=== PATIENT | female | born 1995 | race Caucasian/White ===

== ENCOUNTER → 2017-01-11 | Outpatient (REF) | payer MEDICAID | LOC: LAB 15:38 | PROVIDERS: ATTEND Obstetrics & Gynecology | DX: Z33.1 Pregnant state, incidental (principal) | CPT/HCPCS: 87653 ==

== ENCOUNTER 2017-01-29 16:06 | Outpatient (CLI) | payer MEDICAID ==
[~2017-01-29] VITALS: Ht 165.1 cm; Wt 127.7 kg
[2017-01-29 16:08] VITALS: BP 135/84
[2017-01-29 16:37] VITALS: BP 138/80
== END 2017-01-29 16:40 | disposition home or self-care (01) ==
LOC: EUOP 16:06 → OB 16:08 → EUOP 16:40
PROVIDERS: ATTEND Family Medicine
DX: O36.8131 Decreased fetal movements, third trimester, fetus 1 (principal); O99.820 Streptococcus B carrier state complicating pregnancy; Z34.83 Encounter for supervision of other normal pregnancy, third trimester; Z3A.38 38 weeks gestation of pregnancy
CPT/HCPCS: 59025

== ENCOUNTER 2017-02-05 09:24 | Inpatient (IN) | payer MEDICAID ==
[~2017-02-05] VITALS: Ht 165.1 cm; Wt 127.7 kg
[2017-02-05] VITALS (27 sets, daily range): BP systolic 118–157; BP diastolic 56–85
[2017-02-05] MEDS ORDERED: OXYTOCIN INJ 20 UNIT in NS 1000ml 1,000 ML IV PRN (12:22)
[2017-02-05] MEDS ORDERED: CALCIUM CARBONATE CHEWABLE 300 MG (TUMS) TABLET PO PRN (12:25)
[2017-02-05] MEDS ORDERED: AMPICILLIN INJ 2,000 MG in SODIUM CHLORIDE 100 ML IV SCH (12:25)
[2017-02-05 13:27] LABS: MEAN CORPUSCULAR HEMOGLOBIN 25.7 PG (26.0-34.0); MEAN CORPUSCULAR HGB CONC 31.9 g/dL (31.0-37.0); MEAN PLATELET VOLUME 10.5 FL (6.0-9.5); WHITE BLOOD COUNT 14.24 10^3uL (4.0-11.0)
[2017-02-05] MEDS ORDERED: ROPIVACAINE 1% 10 MG/ML (NAROPIN) 20 ML AMPUL ONE ×2 (14:43→20:48)
[2017-02-05 16:28] LABS: BILIRUBIN,URINE Negative (Negative); CLARITY,URINE Clear; COLOR,URINE Yellow; GLUCOSE, URINE (UA) Negative (Negative); LEUKOCYTE ESTERASE ,URINE Negative (Negative); UROBILINOGEN,URINE 0.2 mg/dL (0.2-1.0)
[2017-02-05 17:06] LABS: RBC,URINE 0-2 /HPF; URINE CENTRIFUGED VOLUME 12 mL
[2017-02-05] MEDS: AMPICILLIN INJ 1,000 MG in SODIUM CHLORIDE 50 ML IV SCH ×2 (17:40→22:00)
[2017-02-05] MEDS ORDERED: OXYTOCIN INJ 20 UNIT in NS 1000ml 1,000 ML SCH (20:15)
[2017-02-05] MEDS ORDERED: OXYTOCIN INJ 20 UNIT in NS 1000ml 1,000 ML IV SCH (21:07)
[2017-02-06] VITALS (8 sets, daily range): BP systolic 126–176; BP diastolic 65–96
[2017-02-06] MEDS ORDERED: MAG HYDROX/AL HYDROX/SIMETH 200-200-20/5 ML (MAG-AL PLUS) 30 ML UDC PO PRN (00:40)
[2017-02-06] MEDS ORDERED: LANOLIN OINTMENT 28 GM TUBE TOP PRN (00:40)
[2017-02-06] MEDS ORDERED: HYDROcodone/APAP 7.5 MG/325 MG (NORCO) TABLET PO PRN (00:40)
[2017-02-06] MEDS ORDERED: M-M-R II (MEASLES,MUMPS,RUBELLA) VACCINE SC SCH (00:40)
[2017-02-06] MEDS: IBUPROFEN 600 MG (MOTRIN) TAB PO PRN ×3 (04:12→21:42)
[2017-02-06] MEDS: DOCUSATE SODIUM 100 MG (COLACE) CAP PO SCH (21:42)
[2017-02-07 07:12] LABS: MEAN PLATELET VOLUME 10.2 FL (6.0-9.5); WHITE BLOOD COUNT 13.89 10^3uL (4.0-11.0)
[2017-02-07 07:15] LABS: MEAN CORPUSCULAR HEMOGLOBIN 25.5 PG (26.0-34.0); MEAN CORPUSCULAR HGB CONC 31.3 g/dL (31.0-37.0)
[2017-02-07 08:30] VITALS: BP 142/81
[2017-02-07] MEDS: FERROUS SULFATE 325 MG (IRON) TABLET PO SCH ×2 (12:22→18:13)
[2017-02-07 21:45] VITALS: BP 138/82
[2017-02-07] MEDS: DOCUSATE SODIUM 100 MG (COLACE) CAP PO SCH (21:45)
[2017-02-08] MEDS: IBUPROFEN 600 MG (MOTRIN) TAB PO PRN (05:16)
[2017-02-08 08:45] VITALS: BP 138/81
[2017-02-08] MEDS: FERROUS SULFATE 325 MG (IRON) TABLET PO SCH (09:51)
== END 2017-02-08 10:37 | disposition home or self-care (01) | DRG 775 ==
LOC: OB 09:24 → EUOP 09:24 → OB 12:57 → EUOP 12:57 → OB 02-06 00:20
PROVIDERS: ADMIT Obstetrics & Gynecology; ATTEND Obstetrics & Gynecology
PROC: 10E0XZZ Delivery of Products of Conception, External Approach (ICD-10-PCS; principal; 2017-02-06)
PROC: 0HQ9XZZ Repair Perineum Skin, External Approach (ICD-10-PCS; 2017-02-06)
DX: O99.824 Streptococcus B carrier state complicating childbirth (principal); Z68.42 Body mass index [BMI] 45.0-49.9, adult; O99.214 Obesity complicating childbirth; E66.9 Obesity, unspecified; O70.0 First degree perineal laceration during delivery; O69.82X0 Labor and delivery complicated by other cord entanglement, without compression, not applicable or unspecified; O34.219 Maternal care for unspecified type scar from previous cesarean delivery; Z78.9 Other specified health status; Z3A.39 39 weeks gestation of pregnancy; Z37.0 Single live birth
CPT/HCPCS: 36415; 81003; 81015; 85027; 86850; 86900; 86901; 90707; 99202

== ENCOUNTER 2017-03-17 17:37 | Emergency (ER) | payer MEDICAID ==
[~2017-03-17] VITALS: Ht 165.1 cm; Wt 113.2 kg
[~2017-03-17 17:37] MED LIST: AC325T PO; BIRTH CONTROL PILL; CALC500T7 PO; CLIN-78 PO; FERR325T5 PO; HYDR-3702 PO; IBUP-793 PO; NO HOME MEDICATIONS; OXYC1TAB87 PO; PNV1CAPS13 PO; PREN1TAB76 PO; SULF-228 PO
--- OUTSIDE RECORDS SUMMARY | 2017-03-17 17:42 | XMS REPORT | Continuity of Care Document ---
Author Author [facility] Address Unknown Phone Unavailable Care Team Providers Care Tests Superintendent Name Role Phone CHRISTY CARRILLO MD PCP [phone] Insurance Providers Payer Name Policy Number Subscriber Name Relationship [facility] [id number] Kasie White 17 Self / Same As Patient Advance Directives Directive Response Recorded Date/Time Advanced Directives Not applicable 04/18/15 6:50pm Chief Complaint and Reason for Visit Chief Complaint LABOR AND DELIVERY Reason for Visit Abscess Normal labor Removal of nikita Spider bite wound Problems Active Problems Medical Problem Onset Date Status 38 weeks gestation of Unknown Acute 39 weeks gestation of Unknown Acute Abdominal pain Unknown Acute Abscess 04/27/2013 Acute Decreased movement Unknown Acute GBS (group B Streptococcus carrier), +RV culture, currently Unknown Acute Infection of skin 04/23/2013 Acute Insect bite - wound 08/26/2012 Acute Laceration Unknown Acute Normal labor 02/10/2013 Acute Previous section 02/11/2013 Acute Removal of nikita 02/15/2013 Acute Spider bite wound 08/25/2012 Acute Medications Current Home Medications Medication Dose Units Route Directions Days/Qty Instructions Start Date Acetaminophen (Tylenol) 325 Mg 325 Mg ORAL As Needed as needed for Back Pain 01/29/17 Calcium Carbonate 200 Mg 200 Mg ORAL Every Three Hours as needed for Acid Reflux 02/05/17 Acetaminophen/Hydrocodone Bitart 1 Each 1-2 Tab ORAL Every 6 Hours as needed for Pain 30 02/07/17 Ferrous Sulfate 325 Mg 325 Mg ORAL Daily 30 02/07/17 Past Home Medications Medication Directions Ordered Status Clindamycin Hcl 150 Mg Capsule, 300 Mg Oral Twice A Day 08/25/12 Discontinued Vits W-Ca,Fe,Fa(<1MG) 1 Each Tablet, 1 Each Oral 02/02/13 Discontinued Pnv Comb.no58/Iron Bisgly/Fa 1 Each Capsule, 1 Each Oral 02/10/13 Discontinued Ibuprofen 600 Mg Tablet, 600 Mg Oral Every 6 Hours as needed 02/13/13 Discontinued Oxycodone/Acetaminophen 1 Each Tablet, 1 Tab Oral Every 4HRS as needed Discontinued [ Control Pill] , 04/23/13 Discontinued Trimethoprim/Sulfamethoxazole 1 Ea Tablet, 1 Ea Oral Twice A Day 04/23/13 Discontinued [No Home Medications] , 04/18/15 Discontinued Social History Query Response Start Date Stop Date Smoking Status Light tobacco smoker 1-9 Hospital Discharge Instructions Patient's Instructions Instructions Discharge Plan of Care Discharge Plan of Care #1 Problem: Regular pp appt Goal: Independent self care Instructions for meeting goal: Instructions provided. Plan of Care Discharge Date 02/08/17 10:37am Disposition 01 HOME OR SELF-CARE Prescriptions See Medication Section Referrals VICTOR M FRANCO MD (Obstetrics/Gynecology) - Within 6 weeks Address: [address] [place] [address] Care Plan and Goals See Discharge Instructions Section Functional Status Query Response Date Recorded Activity Ambulate February 08, 2017 10:27am Assistance Required Independent February 08, 2017 10:27am Allergies, Adverse Reactions, Alerts No known allergies. Immunizations Name Given Type Status Date Influenza Vaccine Received if Current 09/19/12 Historical Historical MMR 02/06/17 Administered Completed Vital Signs Acute Vital Signs Vital Response Date/Time Temperature (Fahrenheit) 98.4 02/08/2017 8:45am Pulse 105 bpm 02/08/2017 8:45am Respirations 16 02/08/2017 8:45am Height 5 ft 5 in Weight 281 lb Body Mass Index 46.0 kg/m^2 Results Pending Laboratory Results Test Name Collection Date/Time Procedures Procedure Status Date Provider(s) STREP B DNA AMP PROBE Completed 01/11/17 NON-STRESS TEST Completed 01/29/17 Encounters Encounter Location Arrival/Admit Date Discharge/Depart Date Attending Provider Admitted Inpatient [facility] 02/05/17 12:57pm VICTOR M FRANCO MD Departed Clinic [facility] 01/29/17 4:06pm 01/29/17 4:40pm CHRISTY CARRILLO MD Registered Referred [facility] 01/11/17 3:38pm VICTOR M FRANCO MD Recent Diagnosis Abscess Normal labor Removal of nikita Spider bite wound
[2017-03-17] MEDS ORDERED: SODIUM CHLORIDE FLUSH 10 ML SYR IV PRN (18:15)
[2017-03-17] MEDS ORDERED: NS IV 500 ML 500 ML IV SCH (18:15)
[2017-03-17] MEDS ORDERED: SODIUM CHLORIDE FLUSH 3 ML SYR IV ONE (18:15)
[2017-03-17 18:39] LABS: BASOPHILS % (AUTO) 0 % (0-2); EOSINOPHILS # (AUTO) 0.1 10^3uL; EOSINOPHILS % (AUTO) 1 % (0-4); LYMPHOCYTES # (AUTO) 2.5 X10^3; MEAN CORPUSCULAR VOLUME 81 FL (80-100); MEAN PLATELET VOLUME 10.4 FL (6.0-9.5); MONOCYTES # (AUTO) 0.4 X10^3; MONOCYTES % (AUTO) 5 % (3-11); NEUTROPHILS # (AUTO) 4.2 X10^3; NEUTROPHILS % (AUTO) 58 % (51-67); PLATELET COUNT 333 10^3uL (150-450); WHITE BLOOD COUNT 7.26 10^3uL (4.0-11.0)
[2017-03-17 18:42] LABS: MEAN CORPUSCULAR HEMOGLOBIN 25.1 PG (26.0-34.0); MEAN CORPUSCULAR HGB CONC 31.1 g/dL (31.0-37.0)
[2017-03-17 18:49] LABS: ANION GAP 12.8 MEQ/L (3-15); CALCULATED IONIZED CALCIUM 4.2 mg/dL (3.8-4.6); TOTAL PROTEIN 7.2 g/dL (6.4-8.5)
[2017-03-17 20:33] VITALS: BP 127/59
== END 2017-03-17 20:25 | disposition home or self-care (01) ==
LOC: ED 17:40
DX: N93.8 Other specified abnormal uterine and vaginal bleeding (principal)
CPT/HCPCS: 36415; 80053; 84443; 85025; 85610; 86140; 86850; 86900; 86901; 87070; 87210; 96360; 99284; J7040; 99283

== ENCOUNTER → 2017-03-18 | Outpatient (CLI) | payer MEDICAID | LOC: LAB 17:34 | PROVIDERS: ATTEND Emergency Medicine | DX: O72.1 Other immediate postpartum hemorrhage (principal) | CPT/HCPCS: 36415; 85014; 85018 ==